=== PATIENT | male | born 1945 | race Caucasian/White ===

== ENCOUNTER 2021-12-23 23:12 | Inpatient (IN) ==
[2021-12-24] MEDS ORDERED: Naloxone 0.4 MG/ML INJ IVP PRN (02:04)
[2021-12-24] MEDS ORDERED: Melatonin 3 MG TABLET PO PRN (02:04)
[2021-12-24] MEDS ORDERED: 0.9 % Sodium Chloride 1,000 ML IVC SCH (03:00)
[2021-12-24 03:55] LABS: Basophils % 0.1 %; Eosinophils % 0.1 %; Hematocrit 40.5 % (37.5-50.1); Hemoglobin 13.1 g/dL (12.9-16.9); Immature Granulocytes % 0.4 % (0-4); Lymphocytes # 1.1 K/mcL (0.6-4.6); Lymphocytes % 7.3 %; Mean Corpuscular HGB Conc 32.3 g/dL (31.6-35.5); Mean Corpuscular Hemoglobin 30.2 pg (28.0-33.3); Mean Corpuscular Volume 93.3 fL (83.0-100.0); Mean Platelet Volume 12.1 fL (9.4-12.4); Monocytes # 0.8 K/mcL (0.0-1.3); Monocytes % 5.6 %; Platelet Count 233 K/mcL (140-400); Red Blood Count 4.34 M/mcL (4.19-5.50); Red Cell Distribution Width 14.4 % (11.5-14.5); Segmented Neutrophils % 86.5 %
[2021-12-24 04:08] LABS: INR 1.4; Prothrombin Time 15.8 Seconds (9.4-12.1)
[2021-12-24 04:26] LABS: Alanine Aminotransferase 20 Units/L (7-52); Albumin 2.5 g/dL (3.5-5.7); Albumin/Globulin Ratio 0.8 (1.1-2.2); Alkaline Phosphatase 142 Units/L (34-104); Aspartate Amino Transferase 17 Units/L (13-39); BUN/Creatinine Ratio 29 (6-26); Bilirubin,Total 0.5 mg/dL (0.3-1.0); Blood Urea Nitrogen 11 mg/dL (8-23); Calcium 8.3 mg/dL (8.6-10.3); Carbon Dioxide 26 mEq/L (23-29); Chloride 104 mEq/L (98-107); Globulin 3.2 g/dL (2.4-3.5); Glucose 86 mg/dL (70-105); Magnesium 1.9 mg/dL (1.6-2.6); Osmolality,Calculated 293 (280-300); Phosphorous 2.5 mg/dL (2.7-4.5); Potassium 4.1 mEq/L (3.5-5.1); Sodium 142 mEq/L (136-145); Total Protein 5.7 g/dL (6.4-8.9); Troponin I 0.05 ng/mL (< 0.04); eGFR For African Americans > 60 (> 60); eGFR For Non-African Americans > 60 (> 60)
[2021-12-24] MEDS ORDERED: Morphine Sulfate 2 MG/ML SYRINGE IVP ONE (05:14)
[2021-12-24] MEDS: Cefepime HCl 2,000 MG in 0.9 % Sodium Chloride 10 ML IVP SCH ×2 (08:56→17:21)
[2021-12-24] MEDS: MetroNIDAZOLE 500 MG/100 ML 500 MG/100 ML BAG IVPB SCH ×2 (08:57→17:50)
[2021-12-24] MEDS ORDERED: *HR* LORazepam 2 MG/ML VIAL IVP ONE (09:32)
[2021-12-24] MEDS: DilTIAZem 50 MG/50 ML IV.SOLN IVC SCH ×3 (09:34→20:41)
[2021-12-24] MEDS ORDERED: Haloperidol Lactate 5 MG/ML VIAL IVP ONE ×2 (13:26→21:04)
[2021-12-24] MEDS: DilTIAZem CD (24hr) 180 MG CAP.ER.24H PO SCH (14:53)
[2021-12-24] MEDS: Ipratropium/Albuterol Neb 3 ML IH SCH ×2 (16:22→20:23)
[2021-12-24] MEDS: *HR* Heparin 5,000 UNIT/ML VIAL SQ SCH (17:22)
[2021-12-24] MEDS: Dexmedetomidine HCl 400 MCG/100 ML MLS IVC SCH (23:56)
[2021-12-25] MEDS: Cefepime HCl 2,000 MG in 0.9 % Sodium Chloride 10 ML IVP SCH ×3 (00:01→15:26)
[2021-12-25] MEDS: MetroNIDAZOLE 500 MG/100 ML 500 MG/100 ML BAG IVPB SCH ×2 (00:28→08:15)
[2021-12-25] MEDS ORDERED: Acetaminophen IV 1,000 MG/100 ML BAG IVPB ONE (03:49)
[2021-12-25] MEDS: Ipratropium/Albuterol Neb 3 ML IH SCH ×4 (04:52→20:04)
[2021-12-25] MEDS: *HR* Heparin 5,000 UNIT/ML VIAL SQ SCH ×2 (05:33→18:04)
[2021-12-25] MEDS ORDERED: Dextrose 4 GM Chewable Tablets PO PRN ×2 (06:21)
[2021-12-25] MEDS ORDERED: D5% in Water 1,000 ML IVC PRN (06:21)
[2021-12-25] MEDS ORDERED: *HR* Dextrose 50 % in Water (Syg) 50 ML SYRINGE IVP PRN (06:21)
[2021-12-25] MEDS: DilTIAZem CD (24hr) 180 MG CAP.ER.24H PO SCH (08:15)
[2021-12-25] MEDS ORDERED: Acetaminophen 325 MG TABLET PO PRN (10:00)
[2021-12-25] MEDS ORDERED: Ondansetron 4 MG/2 ML VIAL ONE (11:31)
[2021-12-25] MEDS ORDERED: *HR* Succinylcholine 200 MG/10 ML VIAL IVP ONE (11:31)
[2021-12-25] MEDS ORDERED: Lidocaine HCL 4 ML Topical Solution (Laryng-O-Jet Kit Sterile Pak) TP ONE (11:31)
[2021-12-25] MEDS ORDERED: *HR* FentaNYL (PF) 100 MCG/2 ML VIAL ONE (11:31)
[2021-12-25] MEDS ORDERED: Lidocaine -MPF 2% 5 ML VIAL ONE (11:31)
[2021-12-25] MEDS ORDERED: *HR* FentaNYL (PF) 100 MCG/2 ML VIAL IVP PRN (12:21)
[2021-12-25] MEDS ORDERED: Naloxone 0.4 MG/ML INJ IVP PRN (12:21)
[2021-12-25] MEDS ORDERED: Nitroglycerin 0.4 MG TAB.SUBL SL PRN (12:21)
[2021-12-25] MEDS ORDERED: Albuterol 2.5 MG/3 ML NEBULIZER IH PRN (12:21)
[2021-12-25] MEDS ORDERED: Ipratropium Neb 0.5 MG NEBULIZER IH PRN (12:21)
[2021-12-25] MEDS ORDERED: Acetylcysteine 10% 2 ML INHSOL IH ONE (12:24)
[2021-12-25] MEDS: Dexmedetomidine HCl 400 MCG/100 ML MLS IVC SCH (15:34)
[2021-12-25] MEDS: *HR* Metoprolol 5 MG/5 ML VIAL IVP PRN ×3 (19:01→20:39)
[2021-12-25] MEDS ORDERED: 0.9 % Sodium Chloride 1,000 ML ONE (23:22)
[2021-12-25] MEDS ORDERED: *HR* Digoxin 0.5 MG/2 ML AMPUL IVP ONE (23:38)
[2021-12-26] MEDS: DilTIAZem 50 MG/50 ML IV.SOLN IVC SCH ×5 (03:13→19:49)
[2021-12-26] MEDS: *HR* Heparin 5,000 UNIT/ML VIAL SQ SCH ×2 (04:58→18:53)
[2021-12-26] MEDS: *HR* Digoxin 0.5 MG/2 ML AMPUL IVP SCH ×2 (05:04→12:33)
[2021-12-26] MEDS: *HR* Metoprolol 5 MG/5 ML VIAL IVP PRN ×2 (05:35→09:31)
[2021-12-26] MEDS ORDERED: Levalbuterol Neb 1.25 MG/3 ML ONE (07:33)
[2021-12-26] MEDS: Ipratropium/Albuterol Neb 3 ML IH SCH (07:58)
[2021-12-26] MEDS: Levalbuterol Neb 1.25 MG/3 ML IH SCH ×3 (07:59→20:10)
[2021-12-26] MEDS: Cefepime HCl 2,000 MG in 0.9 % Sodium Chloride 10 ML IVP SCH ×3 (09:09→21:27)
[2021-12-26 09:13] LABS: Basophils % 0.2 %; Hematocrit 45.4 % (37.5-50.1); Hemoglobin 14.1 g/dL (12.9-16.9); Immature Granulocytes % 0.6 % (0-4); Lymphocytes # 1.5 K/mcL (0.6-4.6); Lymphocytes % 8.4 %; Mean Corpuscular HGB Conc 31.1 g/dL (31.6-35.5); Mean Corpuscular Hemoglobin 29.1 pg (28.0-33.3); Mean Corpuscular Volume 93.8 fL (83.0-100.0); Mean Platelet Volume 12.2 fL (9.4-12.4); Monocytes # 1.1 K/mcL (0.0-1.3); Monocytes % 6.3 %; Neutrophils # 14.6 K/mcL (1.6-8.9); Platelet Count 286 K/mcL (140-400); Red Blood Count 4.84 M/mcL (4.19-5.50); Segmented Neutrophils % 84.5 %; White Blood Count 17.3 K/mcL (4.3-11.1)
[2021-12-26] MEDS: Azithromycin 500 MG in 0.9 % Sodium Chloride 250 ML IVPB SCH (09:29)
[2021-12-26 09:31] LABS: BUN/Creatinine Ratio 54 (6-26); Blood Urea Nitrogen 37 mg/dL (8-23); Calcium 8.3 mg/dL (8.6-10.3); Carbon Dioxide 21 mEq/L (23-29); Chloride 115 mEq/L (98-107); Glucose 93 mg/dL (70-105); Osmolality,Calculated 314 (280-300); Potassium 4.8 mEq/L (3.5-5.1); Sodium 148 mEq/L (136-145); eGFR For African Americans > 60 (> 60); eGFR For Non-African Americans > 60 (> 60)
[2021-12-26] MEDS: DilTIAZem CD (24hr) 180 MG CAP.ER.24H PO SCH (09:33)
[2021-12-26] MEDS: Dexmedetomidine HCl 400 MCG/100 ML MLS IVC SCH (10:48)
[2021-12-26] MEDS ORDERED: *HR* Metoprolol 5 MG/5 ML VIAL IVP PRN (15:19)
[2021-12-27] MEDS: Levalbuterol Neb 1.25 MG/3 ML IH SCH ×4 (04:29→19:49)
[2021-12-27 04:40] LABS: Basophils % 0.1 %; Hematocrit 43.6 % (37.5-50.1); Hemoglobin 13.5 g/dL (12.9-16.9); Immature Granulocytes % 0.5 % (0-4); Lymphocytes # 1.7 K/mcL (0.6-4.6); Lymphocytes % 9.2 %; Mean Corpuscular Hemoglobin 29.5 pg (28.0-33.3); Mean Corpuscular Volume 95.2 fL (83.0-100.0); Mean Platelet Volume 12.1 fL (9.4-12.4); Monocytes % 5.5 %; Neutrophils # 15.5 K/mcL (1.6-8.9); Platelet Count 247 K/mcL (140-400); Red Blood Count 4.58 M/mcL (4.19-5.50); Red Cell Distribution Width 15.1 % (11.5-14.5); Segmented Neutrophils % 84.7 %; White Blood Count 18.3 K/mcL (4.3-11.1)
[2021-12-27] MEDS: Dexmedetomidine HCl 400 MCG/100 ML MLS IVC SCH ×2 (04:40→16:07)
[2021-12-27] MEDS: *HR* Heparin 5,000 UNIT/ML VIAL SQ SCH ×2 (04:40→18:12)
[2021-12-27 04:57] LABS: BUN/Creatinine Ratio 62 (6-26); Blood Urea Nitrogen 32 mg/dL (8-23); Calcium 8.2 mg/dL (8.6-10.3); Carbon Dioxide 24 mEq/L (23-29); Chloride 118 mEq/L (98-107); Glucose 106 mg/dL (70-105); Osmolality,Calculated 319 (280-300); Potassium 3.9 mEq/L (3.5-5.1); Sodium 151 mEq/L (136-145); eGFR For African Americans > 60 (> 60); eGFR For Non-African Americans > 60 (> 60)
[2021-12-27] MEDS: DilTIAZem CD (24hr) 180 MG CAP.ER.24H PO SCH (09:40)
[2021-12-27] MEDS: Cefepime HCl 2,000 MG in 0.9 % Sodium Chloride 10 ML IVP SCH ×2 (13:31→19:57)
[2021-12-27] MEDS: D5% in Water 1,000 ML IVC SCH (13:48)
[2021-12-27] MEDS: Azithromycin 500 MG in 0.9 % Sodium Chloride 250 ML IVPB SCH (13:59)
[2021-12-28 03:00] LABS: BUN/Creatinine Ratio 45 (6-26); Blood Urea Nitrogen 19 mg/dL (8-23); Calcium 7.9 mg/dL (8.6-10.3); Carbon Dioxide 28 mEq/L (23-29); Chloride 116 mEq/L (98-107); Glucose 123 mg/dL (70-105); Osmolality,Calculated 312 (280-300); Potassium 3.1 mEq/L (3.5-5.1); Sodium 149 mEq/L (136-145); eGFR For African Americans > 60 (> 60); eGFR For Non-African Americans > 60 (> 60)
[2021-12-28 03:00] LABS: Basophils % 0.1 %; Eosinophils % 0.1 %; Hematocrit 41.6 % (37.5-50.1); Hemoglobin 12.8 g/dL (12.9-16.9); Immature Granulocytes % 0.4 % (0-4); Lymphocytes # 1.3 K/mcL (0.6-4.6); Lymphocytes % 9.5 %; Mean Corpuscular HGB Conc 30.8 g/dL (31.6-35.5); Mean Corpuscular Hemoglobin 29.6 pg (28.0-33.3); Mean Corpuscular Volume 96.3 fL (83.0-100.0); Mean Platelet Volume 11.8 fL (9.4-12.4); Monocytes # 0.8 K/mcL (0.0-1.3); Monocytes % 5.7 %; Neutrophils # 11.3 K/mcL (1.6-8.9); Platelet Count 203 K/mcL (140-400); Red Blood Count 4.32 M/mcL (4.19-5.50); Red Cell Distribution Width 14.9 % (11.5-14.5); Segmented Neutrophils % 84.2 %; White Blood Count 13.4 K/mcL (4.3-11.1)
[2021-12-28] MEDS: D5% in Water 1,000 ML IVC SCH ×2 (03:20→17:09)
[2021-12-28] MEDS: Dexmedetomidine HCl 400 MCG/100 ML MLS IVC SCH ×2 (03:22→15:51)
[2021-12-28] MEDS: Levalbuterol Neb 1.25 MG/3 ML IH SCH ×4 (03:26→19:54)
[2021-12-28] MEDS: Cefepime HCl 2,000 MG in 0.9 % Sodium Chloride 10 ML IVP SCH ×3 (04:09→21:07)
[2021-12-28] MEDS: *HR* Heparin 5,000 UNIT/ML VIAL SQ SCH ×2 (05:11→17:12)
[2021-12-28] MEDS: Azithromycin 500 MG in 0.9 % Sodium Chloride 250 ML IVPB SCH (08:34)
[2021-12-28] MEDS: Scopolamine Patch 1.5 MG PATCH.TD72 TD SCH (10:02)
[2021-12-28] MEDS: Saliva Stimulant 44.3ml BOTTLE PO PRN (15:05)
[2021-12-29] MEDS: Dexmedetomidine HCl 400 MCG/100 ML MLS IVC SCH ×2 (03:21→15:34)
[2021-12-29] MEDS: Levalbuterol Neb 1.25 MG/3 ML IH SCH ×4 (04:04→20:36)
[2021-12-29] MEDS: *HR* Heparin 5,000 UNIT/ML VIAL SQ SCH ×2 (06:06→17:05)
[2021-12-29] MEDS: Cefepime HCl 2,000 MG in 0.9 % Sodium Chloride 10 ML IVP SCH ×3 (06:06→21:01)
[2021-12-29] MEDS: D5% in Water 1,000 ML IVC SCH (06:53)
[2021-12-29] MEDS: Azithromycin 500 MG in 0.9 % Sodium Chloride 250 ML IVPB SCH (08:13)
[2021-12-29] MEDS: Morphine Sulfate 2 MG/ML SYRINGE IVP PRN (20:56)
[2021-12-30] MEDS: Levalbuterol Neb 1.25 MG/3 ML IH SCH ×2 (03:58→08:32)
[2021-12-30] MEDS: Cefepime HCl 2,000 MG in 0.9 % Sodium Chloride 10 ML IVP SCH (04:33)
[2021-12-30] MEDS: *HR* Heparin 5,000 UNIT/ML VIAL SQ SCH (05:06)
[2021-12-30 05:10] LABS: Basophils % 0.1 %; Eosinophils % 0.1 %; Hematocrit 44.8 % (37.5-50.1); Immature Granulocytes % 0.4 % (0-4); Lymphocytes # 1.2 K/mcL (0.6-4.6); Lymphocytes % 8.6 %; Mean Corpuscular HGB Conc 31.3 g/dL (31.6-35.5); Mean Corpuscular Hemoglobin 29.7 pg (28.0-33.3); Mean Corpuscular Volume 95.1 fL (83.0-100.0); Mean Platelet Volume 12.2 fL (9.4-12.4); Monocytes # 0.8 K/mcL (0.0-1.3); Monocytes % 5.3 %; Neutrophils # 12.1 K/mcL (1.6-8.9); Platelet Count 167 K/mcL (140-400); Red Blood Count 4.71 M/mcL (4.19-5.50); Red Cell Distribution Width 15.6 % (11.5-14.5); Segmented Neutrophils % 85.5 %; White Blood Count 14.2 K/mcL (4.3-11.1)
[2021-12-30 05:21] LABS: BUN/Creatinine Ratio 38 (6-26); Blood Urea Nitrogen 19 mg/dL (8-23); Calcium 7.7 mg/dL (8.6-10.3); Carbon Dioxide 27 mEq/L (23-29); Chloride 115 mEq/L (98-107); Glucose 147 mg/dL (70-105); Osmolality,Calculated 313 (280-300); Potassium 3.6 mEq/L (3.5-5.1); Sodium 149 mEq/L (136-145); eGFR For African Americans > 60 (> 60); eGFR For Non-African Americans > 60 (> 60)
[2021-12-30] MEDS: Dexmedetomidine HCl 400 MCG/100 ML MLS IVC SCH ×2 (06:37→19:28)
[2021-12-30] MEDS ORDERED: Sennosides/Docusate Sodium TABLET PO SCH (09:00)
[2021-12-30] MEDS: Morphine Sulfate 2 MG/ML SYRINGE IVP PRN ×5 (09:28→23:56)
[2021-12-30] MEDS: Azithromycin 500 MG in 0.9 % Sodium Chloride 250 ML IVPB SCH (09:32)
[2021-12-30] MEDS: Saliva Stimulant 44.3ml BOTTLE PO PRN (14:58)
[2021-12-30] MEDS: Haloperidol Lactate 5 MG/ML VIAL IVP PRN ×2 (15:44→23:56)
[2021-12-30 19:02] VITALS: PULSE 73
[2021-12-30] MEDS ORDERED: Artificial Tears SOLN 15 ML BOTTLE BOTH EYES SCH (21:00)
[2021-12-31] MEDS: Morphine Sulfate 2 MG/ML SYRINGE IVP PRN ×3 (02:55→09:40)
[2021-12-31] MEDS: Dexmedetomidine HCl 400 MCG/100 ML MLS IVC SCH (04:14)
[2021-12-31] MEDS: Haloperidol Lactate 5 MG/ML VIAL IVP PRN (04:37)
[2021-12-31 06:56] VITALS: BP 64/33; TEMP 97.2; O2SAT 74
[2021-12-31] MEDS: Scopolamine Patch 1.5 MG PATCH.TD72 TD SCH (09:43)
== END 2021-12-31 13:50 | disposition expired | DRG 205 ==
LOC: 2NENU → OBSVTOIN 12-24 01:38 → SUATTDRO 12-24 01:38
PROVIDERS: ADMIT Internal Medicine; ATTEND Hospitalist